=== PATIENT | male | born 1990 | race Caucasian/White ===

== ENCOUNTER 2021-12-23 16:13 | Emergency (ER) | payer SELFPAY ==
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
[2021-12-23 16:22] VITALS: BP 115/68; PULSE 56; RESP 16; TEMP 36.4; O2SAT 100
== END 2021-12-23 16:32 | disposition home or self-care (01) ==
PROVIDERS: Emergency Provider Nurse Practitioner
DX: L73.9 Follicular disorder, unspecified (principal)
CPT/HCPCS: 99213; G0463

== ENCOUNTER 2025-03-29 19:27 | Emergency (ER) | payer SELFPAY ==
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
--- NOTE | ~2025-03-29 | XR_ITS ---
XR foot RT min 3V Ordering provider: Tejas Rodríguez MD History: . Great toe pain, pain over navicular bone . Comparison: None. FINDINGS: BONES: No acute fracture or dislocation. JOINT SPACES: Normal. No tarsal coalition. SOFT TISSUES: Normal. IMPRESSION: No acute osseous abnormality of the right foot. Reviewed, dictated and finalized at location A.
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
[2025-03-29 19:39] VITALS: BP 113/58; PULSE 64; RESP 18; TEMP 36.6; O2SAT 99
[2025-03-29 21:02] VITALS: BP 132/76; PULSE 56; RESP 16; O2SAT 100
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
[2025-03-29] MEDS: HYDROcodone/acetaminophen (*CRX) 5-325 MG TABLET 2 TAB PO (21:23)
[2025-03-29 22:19] VITALS: BP 126/73; PULSE 63; RESP 18; O2SAT 98
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
[2025-03-29 22:21] VITALS: BP 126/73; PULSE 63; RESP 18; O2SAT 98
== END 2025-03-29 22:23 | disposition home or self-care (01) ==
PROVIDERS: Emergency Provider Emergency Medicine
DX: S93.402A Sprain of unspecified ligament of left ankle, initial encounter (principal); S93.501A Unspecified sprain of right great toe, initial encounter; S63.501A Unspecified sprain of right wrist, initial encounter; V28.49XA Other motorcycle driver injured in noncollision transport accident in traffic accident, initial encounter
CPT/HCPCS: 73070; 73100; 73590; 73610; 73630; 99284; A9270

== ENCOUNTER 2025-09-13 08:32 | Emergency (ER) | payer OTHER, SELFPAY ==
[2025-09-13 08:44] VITALS: BP 148/98; PULSE 61; RESP 18; TEMP 36.4; O2SAT 100
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
== END 2025-09-13 09:04 | disposition home or self-care (01) ==
PROVIDERS: Emergency Provider Nurse Practitioner Family
DX: M54.2 Cervicalgia (principal); S09.90XA Unspecified injury of head, initial encounter; W22.8XXA Striking against or struck by other objects, initial encounter; Y99.0 Civilian activity done for income or pay
CPT/HCPCS: 99212; G0463